=== PATIENT | male | born 1950 | race Caucasian/White ===

== ENCOUNTER 2020-06-03 16:34 | Emergency (ER) | payer MEDICARE ==
[~2020-06-03 16:34] MED LIST: Iopamidol-370 76% 500 ML 1 ML ONE
[2020-06-03] MEDS ORDERED: Morphine 4 MG/ML VIAL ONE (16:52)
[2020-06-03 16:57] LABS: #Basophils 0.1 thou/uL (0.0-0.2); #Eosinphils 0.1 thou/uL (0.0-0.7); #Lymphocytes 1.6 thou/uL (1.20-3.40); #Monocytes 0.7 thou/uL (0.11-0.59); %Basophils 0.5 % (0.0-1.0); %Eosinophils 0.6 % (0.0-10.0); %Lymphocytes 13.7 % (21.0-51.0); %Neutrophils 79.1 % (42.0-75.0); Mean Corpuscular HGB CONC 32.3 g/dL (32.0-36.0); Mean Corpuscular Volume 96.2 fL (78.0-98.0); Mean Platelet Volume 9.2 fL (7.4-10.4); Platelet Count 156 thou/uL (130-400); RBC Distribution Width 12.8 % (11.5-14.5); Red Blood Cell (RBC) Count 4.83 mill/uL (4.70-6.10); White Blood Cell (WBC) Count 11.3 thou/uL (4.8-10.8)
[2020-06-03 17:19] LABS: ALT (SGPT) 19 U/L (8-55); AST (SGOT) 17 U/L (5-34); Albumin 4.1 g/dL (3.4-4.8); Alkaline Phosphatase 57 U/L (40-110); Anion Gap 12 mmol/L (10-20); BUN (Urea Nitrogen) 24 mg/dL (8.4-25.7); Bilirubin, Total 0.3 mg/dL (0.2-1.2); Calc. Creatinine Clearance 0 mL/min (70-130); Calcium 9.4 mg/dL (7.8-10.44); Carbon Dioxide 26 mmol/L (23-31); Chloride 106 mmol/L (98-107); Estimated GFR-MDRD 70; Globulin 3.4 g/dL (2.4-3.5); Glucose 134 mg/dL (80-115); Lipase 49 U/L (8-78); Potassium 4.6 mmol/L (3.5-5.1); Protein, Total 7.5 g/dL (5.8-8.1); Sodium 139 mmol/L (136-145)
--- NOTE | 2020-06-03 17:37 | CT ---
Exam: Chest CT with contrast Abdomen CT with contrast Pelvic CT with contrast Limited CT of the thoracic and lumbar spine HISTORY: Level 2 trauma. Right flank pain. Correlation: None COMPARISON: None FINDINGS: Chest CT: Mediastinum: No mass, lymphadenopathy or hematoma Lower neck and axilla: No mass, lymphadenopathy or hematoma. Aorta: Normal caliber. No periaortic fat stranding Heart: Normal heart size. No pericardial effusion. Scattered coronary disease. Trachea and central bronchi: Patent Pleural spaces: No pleural effusion Right lung: Dependent atelectatic changes. No suspicious masses, nodules or consolidation Left lung:Dependent atelectatic changes. No suspicious masses, nodules or consolidation Pneumothorax: None Abdomen CT: Gallbladder: Unremarkable Portal vein: Patent Liver: Appropriate enhancement. Spleen: Appropriate enhancement Pancreas: Appropriate enhancement Adrenal glands: Appropriate enhancement Lymphadenopathy: No gastrohepatic, retrocrural or periportal lymphadenopathy Kidneys: Symmetric enhancement. Bilaterally no obstructive uropathy Mesentery: No mass, lymphadenopathy, free air or free fluid Alimentary canal: Limited evaluation by the lack of oral contrast. No bowel obstruction. Normal calib er appendix. Scattered fecal material in a decompressed colon. Diverticulosis, without diverticulitis Pelvis CT: No mass, lymphadenopathy, free air or free fluid. Normal prostate gland Urinary bladder: No mucosal abnormality Presacral fat is preserved. Osseous structures: CHEST: Sternal, clavicles, scapula are intact. Displaced right 12th rib fracture. No left rib fractur es. Pelvis: Intact bony pelvis. Intact sacrum. Intact obturator rings. Contour of both femoral heads are maintained. Limited CT of the thoracic and lumbar spine: Thoracic spine vertebral body heights are maintained. No thoracic spine fracture. There is a fracture involving the right transverse process at L1, L2, L3 and possibly L4. No vertebral body fractures. No spondylolisthesis or spondylolysis. IMPRESSION: 1. No posttraumatic change in the chest, abdomen or pelvis. 2. Minimally displaced posterior right 12th rib fracture. 3. Right transverse process fractures from L1 to L4. 5. Results study discussed with Dr. Christianson 06/03/2020 at 5:36 PM Code CR Transcribed Date/Time: 06/03/2020 7:09 PM
[2020-06-03 18:27] LABS: Bilirubin Negative (Negative); Blood, Urine Negative (Negative); Clarity Clear (Clear); Glucose, Urine (Dipstick) Normal (Negative); Ketone, Urine Negative (Negative); Leukocyte Negative Leu/uL (Negative); Nitrite Negative (Negative); Protein, Urine (Dipstick) Negative (Neg-Trace); Specific Gravity, Urine 1.037 (1.002-1.036); Urobilinogen Normal mg/dL (Less than 2)
== END 2020-06-03 19:10 | disposition home or self-care (01) ==
LOC: ERS 16:34
DX: S22.31XA Fracture of one rib, right side, initial encounter for closed fracture (principal); S32.019A Unspecified fracture of first lumbar vertebra, initial encounter for closed fracture; S32.029A Unspecified fracture of second lumbar vertebra, initial encounter for closed fracture; S32.039A Unspecified fracture of third lumbar vertebra, initial encounter for closed fracture; S32.049A Unspecified fracture of fourth lumbar vertebra, initial encounter for closed fracture; F32.9 Major depressive disorder, single episode, unspecified; Z79.899 Other long term (current) drug therapy; W01.0XXA Fall on same level from slipping, tripping and stumbling without subsequent striking against object, initial encounter
CPT/HCPCS: 71260; 74177; 80053; 81003; 83690; 85025; 96361; 96374; G0390; J2270; Q9967